=== PATIENT | male | born 1945 ===

== ENCOUNTER 2019-02-05 09:16 | Emergency (ER) | payer OTHER ==
[2019-02-05 09:29] VITALS: BP 133/78; PULSE 90; RESP 18; TEMP 98.8; O2SAT 100
[2019-02-05] MEDS ORDERED: Tdap Vaccine 0.5 ml Vial (10-64 yrs) IM ONE (09:39)
[2019-02-05] MEDS ORDERED: Amoxicillin-Clav 875-125 mg Tab PO STA (09:39)
[2019-02-05] MEDS ORDERED: Amoxicillin-Clav 875-125 mg Tab PO ONE (09:41)
[2019-02-05] MEDS ORDERED: Tetanus/Diphtheria Toxoids 0.5 ml Syringe IM ONE (09:41)
--- NOTE | 2019-02-05 09:45 | C.PDOC ---
History Of Present Illness 73 y/o male pt presents to the ER c/o a dog bite on his left arm and right hand today. Pt reports he was walking outside when a dog came up and bit his left arm and right hand. The dog quality assurance lead was present and told EMS that the dog is UTD on all shots. Pt denies weakness, numbness or tingling and has no other associated sx, injuries or complaints. Pt notes he is not UTD on his tetanus. Chief Complaint (Nursing): Bite History Per: Patient History/Exam Limitations: no limitations Onset/Duration Of Symptoms: Hrs Current Symptoms Are (Timing): Still Present Location Of Injury: Right: Hand, Left: Arm - Animal Bite Description Of The Attack: Unprovoked Attack Reports Animal Appears: Well Reports Animal's Immunization Status: UTD Past Medical History Reviewed: Historical Data, Nursing Documentation, Vital Signs Vital Signs: Last Vital Signs Temp 98.8 F 02/05/19 09:26 Pulse 90 02/05/19 09:26 Resp 18 02/05/19 09:26 BP 133/78 02/05/19 09:26 Pulse Ox 100 02/05/19 09:26 Family History: States: No Known Family Hx - Social History Hx Alcohol Use: No Hx Substance Use: No Review Of Systems Except As Marked, All Systems Reviewed And Found Negative. Constitutional: Negative for: Other (UTD on tetanus ) Musculoskeletal: Positive for: Other (bite on left arm and right hand ) Neurological: Negative for: Weakness, Numbness, Other (tingling ) Physical Exam - Physical Exam Appears: Well, Non-toxic, No Acute Distress Skin: Warm, Dry Head: Atraumatic, Normacephalic Cardiovascular: Rhythm Regular, No Murmur, Other (Normal S1, S2) Respiratory: No Rales, No Rhonchi, No Wheezing, Other (good air movement, lungs CTA b/l ) Extremity: Normal ROM (FROM x4 ), Capillary Refill (<2 sec), No Deformity, No Swelling, Other (dorsum of right hand: small puncture wound on 1st MCP, no swelling or drainage, can oppose all fingers including thumb; Mid left bicep: 7 cm semi-circular skin tear: no oozing, swelling or drainage, mild bruising; FROM of shoudler to elbow) Pulses: Left Radial: Normal, Right Radial: Normal Neurological/Psych: Oriented x3, Normal Motor, Normal Sensation (5/5 muscle strength ), Other (GCS 15, CN 2-12 intact) ED Course And Treatment O2 Sat by Pulse Oximetry: 100 (RA) Pulse Ox Interpretation: Normal Medical Decision Making Medical Decision Making: Plans: -- tetanus -- amoxicillin EXT re-eval: Pt re-eval. States feeling much better. Denies any pain or complaint at this time. Understands and agrees to immediately return to the ER if having increased swelling, pain, numbness/tingling, change in color or sensation, or any other concerning/worsening, new or continued symptoms. Understands and agrees to remove case/splint if having any of these sxs and see ortho/ER quickly. Pt agrees to make appt with ortho for 1-2 days from now. States will call [facility] for appointments. Patient states feeling better and would like to go home. Patient is very well appearing and non-toxic. Vital signs are stable. I discussed the results of the work-up, diagnosis and treatment. Written discharge instructions were provided to patient. Additional verbal instructions were given and discussed with patient. We discussed the importance of follow up with PCP/consultants. I also reiterated reasons to immediately return to the ER including: worsening in current symptoms and/or new, continued, or concerning symptoms. Pt understood and agreed. Disposition Counseled Patient/Family Regarding: Diagnosis, Need For Followup - Disposition Disposition: HOME/ ROUTINE Disposition Time: 09:42 Condition: GOOD Additional Instructions: LENORE CARRION, thank you for letting us take care of you today. Your provider was Leona Poole MD and you were treated for DOG BITE. The emergency medical care you received today was directed at your acute symptoms. If you were prescribed any medication, please fill it and take as directed. It may take several days for your symptoms to resolve. Return to the Emergency Department if your symptoms worsen, do not improve, or if you have any other problems. Tiene que hacer ninoska nito con chowdhury medico en [address] Bring any paperwork you were given at discharge with you along with any medications you are taking to your follow up visit. Our treatment cannot replace ongoing medical care by a primary care provider outside of the emergency department. [facility]. Prescriptions: Amoxicillin/Clavulanate [Augmentin 875 MG-125 MG] 1 tab PO BID #20 tab Instructions: Animal Bites (DC), Wound Care (DC) Forms: [employer] (Sinhala), Gen Discharge Inst Sinhala Print Language: ROMANIAN - POA Present On Arrival: None - Clinical Impression Clinical Impression: Dog bite, Skin tear of left upper extremity - Scribe Statement The provider has reviewed the documentation as recorded by the Con Marcos Do Provider Attestation: All medical record entries made by the Con were at my direction and personally dictated by me. I have reviewed the chart and agree that the record accurately reflects my personal performance of the history, physical exam, medical decision making, and the department course for this patient. I have also personally directed, reviewed, and agree with the discharge instructions and disposition.
== END 2019-02-05 10:07 | disposition home or self-care (01) ==
LOC: C.ER 09:16
DX: S41.112A Laceration without foreign body of left upper arm, initial encounter (principal); W54.0XXA Bitten by dog, initial encounter; Y92.89 Other specified places as the place of occurrence of the external cause; Z23 Encounter for immunization